=== PATIENT | male | born 1985 | race Caucasian/White ===

== ENCOUNTER 2020-11-01 15:44 | Inpatient (IN) | payer SELFPAY ==
[2020-11-01 16:03] VITALS: PULSE 78; RESP 16; TEMP 36.7; O2SAT 96; BMI 23.3
--- NOTE | 2020-11-01 16:23 | ECG_ITS ---
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1985 Requested By: Altaf Stuart Order Number: [id number] Anish MD: KULWANT DANGELO Measurements Intervals [place] Rate: 95 P: 79 NH: 172 QRS: 63 QRSD: 101 T: 62 QT: 351 QTc: 442 Interpretive Statements SINUS RHYTHM RIGHT ATRIAL ENLARGEMENT [0.3mV P WAVE] LEFT ATRIAL ENLARGEMENT [-0.15mV P WAVE IN V1/V2] POSSIBLE RIGHT VENTRICULAR CONDUCTION DELAY [RSR (QR) IN V1/V2] POSSIBLE LEFT VENTRICULAR HYPERTROPHY [VOLTAGE CRITERIA PLUS LAE OR QRS WIDENING] POSSIBLE SEPTAL MYOCARDIAL INFARCTION , OF INDETERMINATE AGE [30 ms Q WAVE IN V1/V2] No previous ECG available for comparison Electronically Signed On 11-01-2020 19:22:28 CDT by KULWANT DANGELO [id number]
[2020-11-01 16:56] LABS: Basophils # 0.1 10^3/uL (0.0-0.1); Basophils % 0.6 %; Eosinophils # 0.3 10^3/uL (0.0-0.8); Eosinophils % 3.1 %; Hematocrit 46.7 % (42.0-52.0); Hemoglobin 15.6 g/dL (11.7-16.6); Lymphocytes # 3.3 10^3/uL (0.8-4.8); Lymphocytes % 36.5 %; Mean Corpuscular HGB Conc 33.4 g/dL (30.0-36.0); Mean Corpuscular Volume 86.8 fL (80-94); Mean Platelet Volume 9.3 fL (7.4-10.4); Monocytes # 1.1 10^3/uL (0.2-0.9); Neutrophils # 4.27 10^3/uL (1.8-7.7); Neutrophils % 47.6 %; Nucleated Red Blood Cells % 0 %; Platelet Count 300 10^3/cmm (130-400); Red Blood Count 5.38 10^6/uL (4.1-5.3)
--- NOTE | 2020-11-01 17:19 | W.ED.PSYCH ---
HPI - Psych General: Chief Complaint: Psychiatric Symptoms Stated Complaint: PSYCH EVAL Time Seen by Provider: 11/01/20 16:17 History of Present Illness: HPI Narrative: The patient is a 35-year-old male who comes to the ER from detention. His mother wrote an affidavit and the police have issued a 96-hour hold signed by a organisation and methods analyst. Apparently at home he has been paranoid and making statements that he would hang himself and that he and his mother were going to soon. She went to the bathroom and he slid a drawing of a gun under the door and she felt particularly threatened by this. Then he got arrested for trespassing on other peoples property. On arrival to the ER he is agitated. Denies suicidal or homicidal thoughts Context: significant life stressor Associated psychiatric symptoms: racing thoughts Associated symptoms: Deny depression Review of Systems General: Reports: 10 or more systems reviewed and unremarkable except in HPI and below Const: Denies: fatigue Eyes: Denies: change in vision, blurry vision or eye redness ENMT: Denies: throat pain, swelling of lips/tongue, ear or mastoid pain or nasal congestion Card: Denies: chest pain, palpitations, irregular heart rhythm, edema, dyspnea on exertion or orthopnea Resp: Denies: dyspnea, productive cough or non-productive cough GI: Denies: abdominal pain, diarrhea or GI cramping : Denies: flank pain, urinary frequency or urinary urgency Musc: Denies: neck pain, back pain, extremity pain, joint pain, joint redness, limited range of motion or muscle weakness Skin/Breast: Denies: rash, pruritus, erythema, skin pain or skin tenderness Neuro: Denies: headache(s), numbness in extremities, weakness in extremities, sensory changes, difficulty walking, dizziness, confusion or Slurred speech present Psych: Denies: anxiety or depression Endo: Denies: polyuria All/Imm: Denies: urticaria, throat swelling or tongue swelling Physical Exam Const: COMMON NORMALS: no acute distress, average body habitus, patient oriented x3, no limitations, healthy appearing, alert and well nourished GENERAL APPEARANCE: cooperative, comfortable, well developed and anxious ORIENTATION/CONSCIOUSNESS: Yes awake, Yes oriented to person, Yes oriented to place and Yes oriented to time HENMT: COMMON NORMALS: normocephalic, external ears normal and Normal external nose present HEAD & SCALP: normal to inspection and normocephalic NOSE: Normal external nose present EXTERNAL EAR: Yes external ears normal MOUTH: Normal oral and palatal mucosa present THROAT: posterior oropharynx normal Eye: COMMON NORMALS: Equal, round and reactive pupils present and EOMs intact bilaterally GENERAL EYE: appearance normal, both eyes and all related structures PUPIL: Yes Equal, round and reactive pupils present Neck/C-Spine: COMMON NORMALS: full ROM, no lymphadenopathy, no meningeal signs and no JVD GENERAL: Yes normal visual inspection Lymph: LYMPHATIC: no lymphadenopathy noted Chest: COMMONS NORMALS: normal inspection of the chest and normal palpation of entire chest wall Resp: COMMON NORMALS: normal respiratory effort, No retractions, No use of accessory muscles, clear to auscultation bilaterally and percussion normal EFFORT & INSPECTION: Yes able to speak in complete sentences AUSCULTATION: clear to auscultation bilaterally PERCUSSION: percussion normal Cardio: COMMON NORMALS: no JVD, regular rate, regular rhythm, S1 normal heart sound present, S2 normal heart sound present and Peripheral pulses 2+ throughout RATE: regular rate RHYTHM: regular rhythm HEART SOUNDS: S1 normal heart sound present and S2 normal heart sound present PERIPHERAL PULSES: Peripheral pulses 2+ throughout GI: COMMON NORMALS: Normal to inspection, nondistended, normoactive bowel sounds present, Soft to palpation, non-tender and no masses INSPECTION: Yes normal to inspection PALPATION: Yes Soft to palpation : COMMON NORMALS: Yes no CVA tenderness BLADDER/KIDNEY EXAM: Yes no CVA tenderness Back/Pelvis: COMMON NORMALS: no CVA tenderness, thoracic and lumbar spine normal to inspection, no thoracic nor lumbar tenderness and thoraco-lumbar ROM normal Extremity: COMMON NORMALS: normal to inspection, full ROM, capillary refill normal, no joint enlargement and no pedal edema GENERAL: Yes normal exam except as noted Neuro: COMMON NORMALS: patient oriented x3, CN's II-XII intact bilaterally, moves all extremities, no focal motor deficits, no sensory deficits noted and gait normal SENSORIUM/ORIENTATION: Yes alert, Yes oriented to person, Yes oriented to place and Yes oriented to time MENINGEAL SIGNS: Yes no meningeal signs Psych: APPEARANCE: Yes unkempt ATTITUDE: Yes paranoid, Yes agitated and Yes aggressive ACTIVITY/MOTOR BEHAVIOR: Yes hyperactivity and Yes restless MOOD & AFFECT: Yes anxious, Yes irritable and Yes hostile affect THOUGHT PROCESS: Circumstantial thought process present, disorganized, Flight of ideas present, Illogical thought process present and racing thoughts THOUGHT CONTENT: No Suicidality present and No Homicidality present INSIGHT: Poor insight present (Psych) JUDGEMENT: Poor judgement present (Psych) Skin: COMMON NORMALS: no rashes or lesions noted GENERAL SKIN EXAM: no rashes or lesions noted MDM - Psych MDM Narrative: Medical decision making narrative: Patient came in agitated and has made some suicidal and homicidal statements at home. He has a 96-hour hold written against him. Discussed with Dr. Love who accepts for admission and requests Haldol prior to admission Lab Data: Labs: Lab Results 11/01/20 11/01/20 Range/Units 16:40 16:40 WBC 9.0 (4.0-10.0) 10^3/ uL RBC 5.38 H (4.1-5.3) 10^6/u L Hgb 15.6 (11.7-16.6) g/dL Hct 46.7 (42.0-52.0) % MCV 86.8 (80-94) fL MCH 29.0 (28.0-34.0) pg MCHC 33.4 (30.0-36.0) g/dL RDW 12.0 L (12.1-15.1) % Plt Count 300 (130-400) 10^3/c mm MPV 9.3 (7.4-10.4) fL Neut % (Auto) 47.6 % Lymph % (Auto) 36.5 % Stearns % (Auto) 12.0 % Eos % (Auto) 3.1 % Baso % (Auto) 0.6 % Neut # (Auto) 4.27 (1.8-7.7) 10^3/u L Lymph # (Auto) 3.3 (0.8-4.8) 10^3/u L Stearns # (Auto) 1.1 H (0.2-0.9) 10^3/u L Eos # (Auto) 0.3 (0.0-0.8) 10^3/u L Baso # (Auto) 0.1 (0.0-0.1) 10^3/u L Nucleated RBC % (a uto) 0 % Nucleated RBCs # 0.0 /100WBC Sodium 138 (136-145) mmol/L Potassium 3.4 L (3.5-5.1) mmol/L Chloride 100 (98-107) mmol/L Carbon Dioxide 27 (22-29) mmol/L Anion Gap 14.4 (5-19) BUN 9 (6-20) mg/dL Creatinine 0.7 (0.7-1.2) mg/dL GFR Calculation 127.6 (90-130) mL/min Glucose 97 (65-115) mg/dL Calculated Osmolal ity 285 (285-295) mOsm/k g Calcium 9.1 (8.5-10.5) mg/dL Total Bilirubin 0.4 (0.15-1.2) mg/dL AST 35 (0-40) U/L ALT 36 (0-41) U/L Alkaline Phosphata se 97 (40-130) IU/L Total Protein 7.6 (6.6-8.7) g/dL Albumin 4.5 (3.5-5.2) g/dL Globulin 3.1 (1.3-4.6) g/dL TSH 0.70 (0.27-4.20) uIU/ mL Salicylates < 0.3 L (3-10) mg/dL Acetaminophen < 5.0 L (10-30) ug/mL Ethyl Alcohol < 10 (0-10) mg/dL Discharge Plan Discharge Patient Disposition: Admitted As Inpatient Clinical Impression: Acute psychosis, Suicidal ideation, Homicidal thoughts Condition: Stable Coding Level of Care Code 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
[2020-11-01 17:24] LABS: Alanine Aminotransferase 36 U/L (0-41); Albumin Level 4.5 g/dL (3.5-5.2); Alkaline Phosphatase 97 IU/L (40-130); Anion Gap 14.4 (5-19); Aspartate Amino Transferase 35 U/L (0-40); Blood Urea Nitrogen 9 mg/dL (6-20); Calcium 9.1 mg/dL (8.5-10.5); Carbon Dioxide 27 mmol/L (22-29); Chloride 100 mmol/L (98-107); Globulin 3.1 g/dL (1.3-4.6); Glomerular Filtration Rate 127.6 mL/min (90-130); Glucose 97 mg/dL (65-115); Osmolality Calculated 285 mOsm/kg (285-295); Potassium 3.4 mmol/L (3.5-5.1); Sodium 138 mmol/L (136-145); Total Bilirubin 0.4 mg/dL (0.15-1.2); Total Protein 7.6 g/dL (6.6-8.7)
[2020-11-01 17:28] LABS: Acetaminophen < 5.0 ug/mL (10-30); Alcohol Level < 10 mg/dL (0-10); Salicylate < 0.3 mg/dL (3-10)
[2020-11-01 19:44] VITALS: BP 137/83; PULSE 107; RESP 19; TEMP 36.8; O2SAT 97
[2020-11-01] MEDS: haloperidol inj 5 mg/mL INJ 1 mL IM (19:54)
[2020-11-01 19:56] VITALS: PULSE 95
[2020-11-01 20:11] VITALS: RESP 18
[2020-11-01 22:00] VITALS: BP 137/83; PULSE 95; RESP 18; TEMP 36.8
[2020-11-02 06:00] VITALS: RESP 19
[2020-11-02 14:00] VITALS: BP 120/75; PULSE 120; RESP 16; TEMP 36.7; O2SAT 93
--- NOTE | 2020-11-02 14:30 | P.HP_ITS ---
Providers/Chief Complaint Admitting Physician: Afia Love DO Chief Complaint: PSYCH EVAL HPI NPU History of Present Illness Talha Real is a 35 year old male who presented to the emergency department w pat the following report: Chief Complaint: Psychiatric Symptoms Stated Complaint: PSYCH EVAL Time Seen by Provider: 11/01/20 16:17 History of Present Illness: HPI Narrative: The patient is a 35-year-old male who comes to the ER from nursing home. His mother wrote an affidavit and the police have issued a 96-hour hold signed by a etl lead. Apparently at home he has been paranoid and making statements that he would hang himself and that he and his mother were going to soon. She went to the bathroom and he slid a drawing of a gun under the door and she felt particularly threatened by this. Then he got arrested for trespassing on other peoples property. On arrival to the ER he is agitated. Denies suicidal or homicidal thoughts Context: significant life stressor Associated psychiatric symptoms: racing thoughts Associated symptoms: Deny depression. He was admitted to the neuropsychiatric unit for definitive treatment of those issues. According to staff there was a code 10 required to assist Talha and managing his behavior. He presents today reporting no history of psychiatric treatment in his lifetime. No inpatient, outpatient or medication management previously. He denies any history of suicide attempts either. He reports he last smoked cigarettes about 4 days ago. He denies alcohol use but endorses some occasional marijuana use but not daily. He denies any other illicit drug use. He reports he did go to rehab when he was about 18 years old and had a DUI around that time as well. He told a very entering story about having walked to the primary of his mom's property which is about 4 acres which is something he commonly does per his report. He reports he found a fence now and walked beyond the down points to the neighbors house who was having some tractor activity and he approached to ask if he had any knowledge about the down the fence. He reports the response from his neighbor was very rude and agitated and he was advised to get off the property that he was trespassing. He reports that the police were called by this individual and although he returned to his property immediately upon request the police came and apprehended him. He denies any odd behaviors or any reason why he would need to be in the hospital. We discussed the fact that he was on a 96-hour hold and he only requested that he be released as soon as possible denies any need for that hold. The 96-hour hold was reviewed and he told quite a different picture about his behavior, worries of thought disorder and psychosis and that there have been threats made to his mother with whom he lives. He denied these reports to be true. Psychiatric history: As above. Substance abuse history: As above. Family history: Patient denies mental health or addiction issues on either side of the family and denies suicide attempts or completions in the family. Developmental history: There were no problems with the , or delivery, learned to walk and talk and met developmental milestones on time, and denies need for speech therapy, learning support, emotional support or special education classes. Psychosocial history: He reports his mother and father were together when he was born but did not remain together. He reports that he has an older brother who is a product of that same union. He denies that his mother has any other children but reports that his father has 7 daughters. He reports that his childhood was blessed and he denied any emotional, physical or sexual abuse. 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 He endorses being a heterosexual and his longest relationship was 3 years. 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 He endorses that the was his long appointment and he currently lives a trailer with his mother. Legal history: He reports he been to nursing home 3-4 times but generally this days have not been more than overnight. Medical history: He denies any significant medical concerns. Please see ED note for full details. Meds NPU Home Medications Medication Instructions Recorded Confirmed Last Taken Type No Known Home Medications 11/01/20 11/01/20 Unknown History Allergies Allergy/AdvReac Type Severity Reaction Status Date / Time No Known Allergies Allergy Verified 11/01/20 16:31 Mental Status Exam MSE Comments: This is a well, well-developed white male in hospital scrubs with adequate dress, grooming and eye contact. No abnormal movements except for mild psychomotor retardation. Cooperative with exam. In no acute distress. Speech was slightly decreased rate and normal volume. Mood described as sleepy, affect annoyed. Thought process appears organized. Thought content: Patient denied suicidal or homicidal ideation, there were no delusions reported noted, he denied any auditory visual hallucinations. Attention and concentration were intact and memory appeared unreliable but none were formally tested. He is alert and oriented times person and place. Insight and judgment are impaired, impulse control is limited. Vitals/I&O/Wt Last Vital Signs Temp 98.1 F 11/02/20 14:00 Pulse 120 H 11/02/20 14:00 Resp 16 11/02/20 14:00 BP 120/75 11/02/20 14:00 Pulse Ox 93 11/02/20 14:00 Weight last 48 hrs Weight 78.018 kg Data NPU : 11/01/20 16:40 11/01/20 16:40 A&P Assessment and plan (1) Acute psychosis: Status: Acute (2) Suicidal ideation: Status: Acute (3) Homicidal thoughts: Status: Acute (4) Cannabis abuse: Status: Acute (5) Methamphetamine use: Status: Acute Additional A&P Information This is a 35-year-old white male who presents with reports of bizarre behavior, psychosis homicidal and suicidal thoughts who denies any significant current drug use but has a positive screen for methamphetamines. 1. Continue current medication. We will discussed the possibility of medications moving forward. 2. Continue every 15 minute checks for safety. 3. Encourage individual, group and milieu therapies. 4. Encourage sober living treatment after discharge at the highest level of care to which he is willing to commit. Involuntary Hold Information 96 Hour Hold: 96 Hour Involuntary Admission: Yes 96 Hour Hold Ending Date: 11/07/20 96 Hour Hold Ending Time: 15:44 Attestations NPU Medical Necessity Statement*: Inpatient hospitalization is medically necessary and the clinically appropriate intervention at this time. We will monitor medications and make changes as indicated. Patient will be in the hospital for over two midnights. Likely length of stay 3 to 5 days. 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
[2020-11-02 15:08] LABS: Add Urine Microscopic? NO; Urine Appearance Clear (CLEAR); Urine Color Yellow (Yellow)
[2020-11-02 15:09] LABS: Bilirubin Urine Neg (Negative); Blood Urine Neg (Negative); Glucose Urine UA Norm (Normal); Ketones Urine Negative (Negative); Leukocyte Esterase Urine Negative (Negative); Nitrate Urine Negative (Negative); Protein Urine Neg (Negative); Specific Gravity, Urine 1.015 (1.005-1.030); Urobilinogen Urine Norm (Negative); pH Urine 7 (5-7)
[2020-11-02 15:10] LABS: Charge for UA Resulting for Rev
[2020-11-02 16:18] LABS: Amphetamines Screen Urine Positive (Negative); Barbiturates Screen Urine Negative (Negative); Benzodiazepines Screen Urine Negative (Negative); Cocaine Screen Urine Negative (Negative); Opiate Screen Urine Negative (Negative); PCP Screen Urine Negative (Negative); THC Screen Urine Negative (Negative)
[2020-11-02 21:29] VITALS: RESP 17
--- NOTE | 2020-11-03 00:21 | PC.NURSE ---
Received phone call from [facility]'s Department. Instructed to call the department on day of patient discharge so he can be picked up secondary to criminal charges.
[2020-11-03 06:00] VITALS: BP 112/76; PULSE 113; RESP 17; TEMP 36.7; O2SAT 97
[2020-11-03 14:00] VITALS: BP 110/76; PULSE 63; RESP 16; TEMP 36.2; O2SAT 98
--- NOTE | 2020-11-03 15:03 | P.PN_ITS ---
Subjective NPU Subjective: Interval history: Talha presents today open to the conversation about his situation. He continues to downplay any altered mental status that may have contributed to his run in with the entry level civil engineer. Even with the discussion of the UDS positive for methamphetamine he really never identified a possibility that long enforcement or his mother could have seen behaviors that might be seen as problematic that they represented by the information on those documents. We also discussed the fact that he does have an active warrant for burglary from July which he says he does not understand and was clearly anxious about having to return to alf. Mental Status Exam MSE Comments: This is a well, well-developed white male in hospital scrubs with adequate dress, grooming and eye contact. No abnormal movements except for mild psychomotor retardation. Cooperative with exam. In no acute distress. Speech was slightly decreased rate and normal volume. Mood described as a little better, affect congruent. Thought process appears organized. Thought content: Patient denied suicidal or homicidal ideation, there were no delusions reported or noted, he denied any auditory or visual hallucinations. Attention and concentration were intact and memory appeared unreliable but none were formally tested. He is alert and oriented x3. Insight and judgment are improving, impulse control is limited, but improving. Vitals/I&O/Wt Last Vital Signs Temp 97.9 F 11/03/20 19:40 Pulse 101 H 11/03/20 19:40 Resp 18 11/03/20 19:40 BP 127/86 11/03/20 19:40 Pulse Ox 96 11/03/20 19:40 Data NPU : 11/01/20 16:40 11/01/20 16:40 A&P Additional A&P Information (1) Acute psychosis: (2) Suicidal ideation: (3) Homicidal thoughts: (4) Cannabis abuse: (5) Methamphetamine use: Additional A&P Information This is a 35-year-old white male who presents with reports of bizarre behavior, psychosis homicidal and suicidal thoughts who denies any significant current drug use but has a positive screen for methamphetamines. 1. Continue current medication. We will discussed the possibility of medications moving forward. 2. Continue every 15 minute checks for safety. 3. Encourage individual, group and milieu therapies. 4. Encourage sober living treatment after discharge at the highest level of care to which he is willing to commit. Involuntary Hold Information 96 Hour Hold: 96 Hour Involuntary Admission: Yes 96 Hour Hold Ending Date: 11/07/20 96 Hour Hold Ending Time: 15:44 Attestations NPU Medical Necessity Statement*: Inpatient hospitalization is medically necessary and the clinically appropriate intervention at this time. We will monitor medications and make changes as indicated. Likely length of stay 1-4 days. 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
[2020-11-03 19:40] VITALS: BP 127/86; PULSE 101; RESP 18; TEMP 36.6; O2SAT 96
[2020-11-04 06:00] VITALS: BP 111/76; PULSE 96; RESP 17; TEMP 37.6; O2SAT 98
[2020-11-04 14:00] VITALS: BP 112/71; PULSE 89; RESP 18; TEMP 36.1; O2SAT 97
--- NOTE | 2020-11-04 16:42 | P.PN_ITS ---
Subjective NPU Subjective: Interval history: Talha presented today reporting that he is unclear about what these charges are about. He is very anxious with knowledge that he has some felony charge. He was more open and acknowledging that he has had some struggles with addiction. But he denies any history of violence, stealing burglary or any other possible charges that are against him. We discussed possibility medication and he was reporting that he feels like therapy will be the most effective option. We discussed the possibility of discharge in the next 48 hours. Mental Status Exam MSE Comments: This is a well, well-developed white male in hospital scrubs with adequate dress, grooming and eye contact. No abnormal movements except for mild psychomotor agitation. Cooperative with exam in mild distress. Speech was more normal rate and volume. Mood described as anxious, affect congruent. Thought process appears organized. Thought content: Patient denied suicidal or homicidal ideation, there were no delusions reported or noted, he denied any auditory or visual hallucinations. Attention and concentration were intact and memory appeared more reliable but none were formally tested. He is alert and oriented x3. Insight and judgment are improving, impulse control is limited, but improving. Vitals/I&O/Wt Last Vital Signs Temp 97.9 F 11/04/20 20:06 Pulse 98 11/04/20 20:06 Resp 18 11/04/20 20:06 BP 137/81 11/04/20 20:06 Pulse Ox 99 11/04/20 20:06 Weight last 48 hrs Weight 78.018 kg Data NPU : 11/01/20 16:40 11/01/20 16:40 A&P Additional A&P Information (1) Acute psychosis: (2) Suicidal ideation: (3) Homicidal thoughts: (4) Cannabis abuse: (5) Methamphetamine use: Additional A&P Information This is a 35-year-old white male who presents with reports of bizarre behavior, psychosis homicidal and suicidal thoughts who denies any significant current drug use but has a positive screen for methamphetamines. 1. Continue current medication. We will discussed the possibility of medications moving forward. 2. Continue every 15 minute checks for safety. 3. Encourage individual, group and milieu therapies. 4. Encourage sober living treatment after discharge at the highest level of care to which he is willing to commit. Involuntary Hold Information 96 Hour Hold: 96 Hour Involuntary Admission: Yes 96 Hour Hold Ending Date: 11/07/20 96 Hour Hold Ending Time: 15:44 Attestations NPU Medical Necessity Statement*: Inpatient hospitalization is medically necessary and the clinically appropriate intervention at this time. We will monitor medications and make changes as indicated. Likely length of stay 1-2 days. 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
[2020-11-04 20:06] VITALS: BP 137/81; PULSE 98; RESP 18; TEMP 36.6; O2SAT 99
[2020-11-05 06:00] VITALS: BP 120/81; PULSE 100; RESP 17; TEMP 37.3; O2SAT 96
[2020-11-05 14:00] VITALS: BP 130/75; PULSE 96; RESP 18; TEMP 36.4; O2SAT 97
--- NOTE | 2020-11-05 18:54 | PM.NPN ---
Subjective NPU Subjective: Interval history: Tahla presents today reporting that his mother was able to go on the Internet and evaluate some of the information out there. He is fairly anxious because he does not know what this is about but he does know that the charge is a possibly first-degree felony. He is going to call the court house first thing in the morning so he knows what he would be dealing with when he is released. He continues to report anxiety but is thinking more clearly and feels capable of managing what ever he needs to. Mental Status Exam MSE Comments: This is a well, well-developed white male in hospital scrubs with adequate dress, grooming and eye contact. No abnormal movements. Cooperative with exam in no acute distress. Speech was normal rate and volume. Mood described as anxious, but better, affect congruent. Thought process appears organized. Thought content: Patient denied suicidal or homicidal ideation, there were no delusions reported or noted, he denied any auditory or visual hallucinations. Attention and concentration were intact and memory appeared more reliable but none were formally tested. He is alert and oriented x3. Insight and judgment are improving, impulse control is improving. Vitals/I&O/Wt Last Vital Signs Temp 98.1 F 11/05/20 21:51 Pulse 91 11/05/20 21:51 Resp 17 11/05/20 21:51 BP 123/84 11/05/20 21:51 Pulse Ox 96 11/05/20 21:51 Weight last 48 hrs Weight 78.018 kg Data NPU : 11/01/20 16:40 11/01/20 16:40 A&P Additional A&P Information (1) Acute psychosis: (2) Suicidal ideation: (3) Homicidal thoughts: (4) Cannabis abuse: (5) Methamphetamine use: Additional A&P Information This is a 35-year-old white male who presents with reports of bizarre behavior, psychosis homicidal and suicidal thoughts who denies any significant current drug use but has a positive screen for methamphetamines. 1. Continue current medication. 2. Continue every 15 minute checks for safety. 3. Encourage individual, group and milieu therapies. 4. Encourage sober living treatment after discharge at the highest level of care to which he is willing to commit. 5. Likely discharged to authorities tomorrow. Involuntary Hold Information 96 Hour Hold: 96 Hour Involuntary Admission: Yes 96 Hour Hold Ending Date: 11/07/20 96 Hour Hold Ending Time: 15:44 Attestations NPU Medical Necessity Statement*: Inpatient hospitalization is medically necessary and the clinically appropriate intervention at this time. We will monitor medications and make changes as indicated. Likely length of stay 1-2 days. 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
[2020-11-05 21:51] VITALS: BP 123/84; PULSE 91; RESP 17; TEMP 36.7; O2SAT 96
[2020-11-06 06:00] VITALS: BP 113/69; PULSE 107; RESP 17; TEMP 36.8; O2SAT 98
--- NOTE | 2020-11-06 14:07 | PM.NDC ---
Diagnoses at Discharge Discharge Diagnosis (1) Acute psychosis: Status: Acute (2) Suicidal ideation: Status: Resolved (3) Homicidal thoughts: Status: Resolved (4) Cannabis abuse: Status: Acute (5) Methamphetamine use: Status: Acute Reason for Visit Reason for Visit: PSYCH EVAL Brief History: History of Present Illness Talha Real is a 35 year old male who presented to the emergency department with the following report: Chief Complaint: Psychiatric Symptoms Stated Complaint: PSYCH EVAL Time Seen by Provider: 11/01/20 16:17 History of Present Illness: HPI Narrative: The patient is a 35-year-old male who comes to the ER from [facility]. His mother wrote an affidavit and the police have issued a 96-hour hold signed by a finance vice president. Apparently at home he has been paranoid and making statements that he would hang himself and that he and his mother were going to soon. She went to the bathroom and he slid a drawing of a gun under the door and she felt particularly threatened by this. Then he got arrested for trespassing on other peoples property. On arrival to the ER he is agitated. Denies suicidal or homicidal thoughts Context: significant life stressor Associated psychiatric symptoms: racing thoughts Associated symptoms: Deny depression. He was admitted to the neuropsychiatric unit for definitive treatment of those issues. According to staff there was a code 10 required to assist Talha and managing his behavior. He presents today reporting no history of psychiatric treatment in his lifetime. No inpatient, outpatient or medication management previously. He denies any history of suicide attempts either. He reports he last smoked cigarettes about 4 days ago. He denies alcohol use but endorses some occasional marijuana use but not daily. He denies any other illicit drug use. He reports he did go to rehab when he was about 18 years old and had a DUI around that time as well. He told a very entering story about having walked to the primary of his mom's property which is about 4 acres which is something he commonly does per his report. He reports he found a fence now and walked beyond the down points to the neighbors house who was having some tractor activity and he approached to ask if he had any knowledge about the down the fence. He reports the response from his neighbor was very rude and agitated and he was advised to get off the property that he was trespassing. He reports that the police were called by this individual and although he returned to his property immediately upon request the police came and apprehended him. He denies any odd behaviors or any reason why he would need to be in the hospital. We discussed the fact that he was on a 96-hour hold and he only requested that he be released as soon as possible denies any need for that hold. The 96-hour hold was reviewed and he told quite a different picture about his behavior, worries of thought disorder and psychosis and that there have been threats made to his mother with whom he lives. He denied these reports to be true. Psychiatric history: As above. Substance abuse history: As above. Family history: Patient denies mental health or addiction issues on either side of the family and denies suicide attempts or completions in the family. Developmental history: There were no problems with the , or delivery, learned to walk and talk and met developmental milestones on time, and denies need for speech therapy, learning support, emotional support or special education classes. Psychosocial history: He reports his mother and father were together when he was born but did not remain together. He reports that he has an older brother who is a product of that same union. He denies that his mother has any other children but reports that his father has 7 daughters. He reports that his childhood was blessed and he denied any emotional, physical or sexual abuse. 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 He endorses being a heterosexual and his longest relationship was 3 years. 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 He endorses that the was his longest employment and he currently lives a trailer with his mother. Legal history: He reports he been to [facility] 3-4 times but generally this days have not been more than overnight. Medical history: He denies any significant medical concerns. Please see ED note for full details. Hospital Course Hospital Course Patient presented to the emergency department with psychosis, lethality and active methamphetamine use. He was admitted to the neuropsychiatric unit for definitive treatment of those issues. He was not open to initiation of medication but did show marked improvement during his stay. He was able to contract for safety prior to discharge. During the hospitalization, patient had routine laboratory studies which were within normal limits except for few outliers. Additionally there was a general medical evaluation which was also within normal limits and revealed no new acute processes. Discharge Summary: At the time of discharge, lethality was denied and psychosis was resolving. Mood and anxiety were well managed. Patient endorsed a plan to avoid all drugs of abuse and follow-up with the aftercare recommendations of the treatment team. Patient was evaluated and deemed to be absent credible lethality, and had achieved the maximum benefit from an inpatient hospitalization, so was discharged. Involuntary Hold Information 96 Hour Hold: 96 Hour Involuntary Admission: Yes 96 Hour Hold Ending Date: 11/07/20 96 Hour Hold Ending Time: 15:44 Mental Status Exam MSE Comments: This is a well-nourished, well-developed white male in hospital scrubs with adequate dress, grooming and eye contact. No abnormal movements. Cooperative with exam in no acute distress. Speech was normal rate and volume. Mood described as better, affect congruent. Thought process appears organized. Thought content: Patient denied suicidal or homicidal ideation, there were no delusions reported or noted, he denied any auditory or visual hallucinations. Attention and concentration were intact and memory appeared more reliable but none were formally tested. He is alert and oriented x3. Insight and judgment are improving, impulse control is improving. Discharge Data Vitals: Last Vital Signs Temp 98.3 F 11/06/20 06:00 Pulse 107 H 11/06/20 06:00 Resp 17 11/06/20 06:00 BP 113/69 11/06/20 06:00 Pulse Ox 98 11/06/20 06:00 Discharge Plan Discharge Patient Disposition: Home Condition: Stable Prescriptions: Continued No Known Home Medications RF: 0 Discharge Orders: Discharge Order (Routine); Ordered 11/06/20 Ordered By: Elijah Mcguire Discharge Diet: Regular Discharge Activity: Resume usual activity Patient Instructions: Opioid Safety Discharge Attestations NPU Time Spent in Discharge Care*: less than 30 min Specific Discharge Activities: Specific discharge activities: educating patient, discussing with machine adjuster leader case trim/social workers/dc planners, documenting/other paperwork and evaluating patient/reviewing data Coding Level of Care Code Acute Chg FW DC note Diagnoses Acute psychosis F23 Suicidal ideation R45.851 Homicidal thoughts R45.850 Cannabis abuse F12.10 Methamphetamine use F15.10
[2020-11-06 14:17] VITALS: BP 113/69; PULSE 107; RESP 17; TEMP 36.8; O2SAT 98
== END 2020-11-06 14:55 | disposition home or self-care (01) | DRG 885 ==
LOC: ER 18:00 → NP 18:26
PROVIDERS: Admitting Provider Psychiatry & Neurology Psychiatry; Emergency Provider Family Medicine; Visit Provider Psychiatry & Neurology Psychiatry
DX: F23 Brief psychotic disorder (principal); R45.851 Suicidal ideations; R45.850 Homicidal ideations; F12.10 Cannabis abuse, uncomplicated; F15.90 Other stimulant use, unspecified, uncomplicated
CPT/HCPCS: 80053; 80306; 80307; 81003; 84443; 85025; 93005; 96360; 96372; 99285; J1630

== ENCOUNTER → 2021-01-24 11:37 | Outpatient (BNVA) | payer OTHER, SELFPAY | PROVIDERS: Visit Provider Nurse Practitioner Family | DX: Z20.822 Contact with and (suspected) exposure to COVID-19 (principal) | CPT/HCPCS: 87635 ==